=== PATIENT | female | born 1960 | race Caucasian/White ===

== ENCOUNTER 2021-12-09 06:10 | Emergency (ER) | payer MEDICAID, OTHER ==
[~2021-12-09] VITALS: Ht 160 cm; Wt 66.9 kg
--- NOTE | 2021-12-09 06:25 | NUR ---
PT TAKEN TO BED 9
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
[2021-12-09] MEDS ORDERED: BACITRACIN OINT 500 UNITS/GM PKT TP ONE (07:05)
--- NOTE | 2021-12-09 07:27 | NUR ---
Change of shift report given to AM shift nurse Ysabel ROTHMAN. AM shift nurse Ysabel RN verbalized understanding of report, no further questions.
[2021-12-09] MEDS ORDERED: BACI1PAC6 TP (08:23)
[2021-12-09 08:59] VITALS: BP 128/72
--- NOTE | 2021-12-09 08:59 | NUR ---
Patient discharged with v/s stable. Written and verbal after care instructions given and explained. Patient alert, oriented and verbalized understanding of instructions. Ambulatory with steady gait. All questions addressed prior to discharge. ID band removed. Patient advised to follow up with PMD. Rx of BACITRACIN OINTMENT given. Patient educated on indication of medication including possible reaction and side effects. Opportunity to ask questions provided and answered.
== END 2021-12-09 08:59 | disposition home or self-care (01) ==
LOC: MED 06:10
DX: T24.212A Burn of second degree of left thigh, initial encounter (principal); T31.0 Burns involving less than 10% of body surface; X11.8XXA Contact with other hot tap-water, initial encounter; Y93.89 Activity, other specified; Y92.89 Other specified places as the place of occurrence of the external cause; Y99.8 Other external cause status
CPT/HCPCS: 99282

== ENCOUNTER 2022-12-05 22:52 | Emergency (ER) | payer OTHER ==
[~2022-12-05] VITALS: Ht 144.8 cm; Wt 67.1 kg
[~2022-12-05 22:52] MED LIST: BACI-418 TP
[2022-12-05 22:55] VITALS: BP 157/66; PULSE 68; RESP 17; TEMP 97; O2SAT 97
[2022-12-06] MEDS ORDERED: KETOROLAC 30 MG/ML VIAL IM ONE (03:15)
[2022-12-06] MEDS ORDERED: NITR100C7 PO (05:30)
[2022-12-06] MEDS ORDERED: ACET-10509 PO (05:30)
[2022-12-06 05:40] VITALS: BP 143/71; PULSE 70; RESP 18; TEMP 98.2; O2SAT 99
== END 2022-12-06 05:40 | disposition home or self-care (01) ==
LOC: MED 22:52
DX: M13.852 Other specified arthritis, left hip (principal); M13.851 Other specified arthritis, right hip; N39.0 Urinary tract infection, site not specified; Z79.899 Other long term (current) drug therapy; Z98.890 Other specified postprocedural states
CPT/HCPCS: 72170; 93005; J1885